=== PATIENT | male | born 1960 | race American Indian/Alaskan Native ===

== ENCOUNTER 2019-09-15 02:35 | Emergency (ER) | payer OTHER ==
--- NOTE | 2019-09-15 04:24 | XRay Report ---
LEFT SHOULDER 3 VIEWS 0320 INDICATION: left shoulder pain COMPARISON: None available. FINDINGS: No fractures or dislocations are seen. Only a trace glenohumeral degenerative change is not ed. Signer Name: Sebastian White MD Signed: 09/15/2019 4:19 AM Workstation Name: [id number]
[2019-09-15] MEDS ORDERED: HYDROcodone/ACETAMINOPHEN 5-325 MG TAB PO ONE (05:06)
[2019-09-15] MEDS ORDERED: TETANUS,DIPH,PERTUSS(ACELL) VACCINE 0.5 ML SYRINGE IM ONE (05:06)
--- NOTE | 2019-09-15 05:06 | Emergency Department Report ---
- General Chief Complaint: Wound/Laceration Stated Complaint: FACIAL INJURY Time Seen by Provider: 09/15/19 03:48 Source: patient Mode of arrival: Ambulatory Limitations: No Limitations - History of Present Illness Initial Comments: pt is a 59 y/o aam who fell out of bed striking the bridge of his nose on coffee table, now with 1 cm laceration across same. there is no deformity , bleed in controlled by direct pressure applied by patient, pt denies loc, was immediately ambulatory after incident, drove to ed , pt has secondary complaint of left shoulder pain, pt denies neck pain no headache, no epistaxis, no other injury. Onset/Timin -: hour(s) Location: face Place: home Patient Tetanus UTD: No Associated Symptoms: pain - Related Data Previous Rx's Medication Instructions Recorded Last Taken Type Acetaminophen/Codeine [Tylenol 1 tab PO Q6H PRN #12 tab 09/15/19 Unknown Rx /Codeine # 3 tab] Oxymetazoline 0.05% [Vicks Sinex] 2 spray NS BID #1 bottle 09/15/19 Unknown Rx Allergies Allergy/AdvReac Type Severity Reaction Status Date / Time No Known Allergies Allergy Unverified 09/15/19 02:55 ED Review of Systems ROS: Stated complaint: FACIAL INJURY Other details as noted in HPI Constitutional: denies: chills, fever Eyes: denies: eye pain, eye discharge, vision change ENT: denies: ear pain, throat pain Respiratory: denies: cough, shortness of breath, wheezing Cardiovascular: as per HPI Endocrine: no symptoms reported Gastrointestinal: denies: abdominal pain, nausea, diarrhea Genitourinary: denies: urgency, dysuria Musculoskeletal: denies: back pain, joint swelling, arthralgia Skin: other (nose laceration as above ). denies: rash, lesions Neurological: denies: headache, weakness, paresthesias Psychiatric: denies: anxiety, depression Hematological/Lymphatic: denies: easy bleeding, easy bruising ED Past Medical Hx - Past Medical History Previous Medical History?: No - Surgical History Past Surgical History?: No - Social History Smoking Status: Never Smoker Substance Use Type: None - Medications Home Medications: Home Medications Medication Instructions Recorded Confirmed Last Taken Type Acetaminophen/Codeine [Tylenol 1 tab PO Q6H PRN #12 tab 09/15/19 Unknown Rx /Codeine # 3 tab] Oxymetazoline 0.05% [Vicks Sinex] 2 spray NS BID #1 bottle 09/15/19 Unknown Rx ED Physical Exam - General Limitations: No Limitations General appearance: alert, in no apparent distress - Head Head exam: Present: normocephalic, normal inspection - Expanded Head Exam Expanded Head exam: Present: laceration (nose horizontal 1 cm superficial ). Absent: abrasion, contusion, hematoma, racoon eyes, tracy's sign, general tenderness, tenderness of temporal artery, CSF rhinorrhea, CSF otorrhea - Eye Eye exam: Present: normal appearance, PERRL, EOMI. Absent: nystagmus Pupils: Present: normal accommodation - ENT ENT exam: Present: normal orophraynx, mucous membranes moist, TM's normal bilaterally, normal external ear exam - Neck Neck exam: Present: normal inspection, full ROM. Absent: tenderness, meningismus, lymphadenopathy, thyromegaly - Expanded Neck Exam Expanded Neck exam: Absent: tenderness, midline deformity, anterior neck swelling, thyroid mass, carotid bruit, tracheal deviation - Respiratory Respiratory exam: Present: normal lung sounds bilaterally. Absent: respiratory distress, wheezes, stridor, chest wall tenderness - Cardiovascular Cardiovascular Exam: Present: regular rate, normal rhythm, normal heart sounds. Absent: systolic murmur, diastolic murmur, rubs, gallop - GI/Abdominal GI/Abdominal exam: Present: soft, normal bowel sounds. Absent: distended, tenderness, bruit, hernia - Rectal Rectal exam: Present: deferred - Extremities Exam Extremities exam: Present: normal inspection, full ROM, tenderness (left anteri or lateral shoulder ), normal capillary refill - Expanded Upper Extremity Exam Left Shoulder Exam: Present: full ROM, tenderness (left anterior later shoulder , mild ac joint tenderness no swelling no deformity no crepitus), tenderness over AC joint (mild ). Absent: swelling, abrasion, laceration, ecchymosis, deformity, crepidus, dislocation, erythema Upper Arm exam: Present: normal inspection, full ROM. Absent: tenderness Elbow exam: Present: full ROM. Absent: tenderness, swelling Forearm Wrist exam: Present: full ROM. Absent: tenderness, swelling Hand Wrist exam: Present: normal inspection, full ROM. Absent: tenderness Neuro motor exam: Present: wrist extension intact, thumb opposition intact, thumb IP flexion intact, thumb adduction intact, fingers 2-5 abduction intact Neurosensory exam: Present: 2-point discrimination, radial nerve intact Vascular: Present: normal capillary refill. Absent: vascular compromise, pulse deficit radial art - Back Exam Back exam: Present: normal inspection, full ROM, muscle spasm. Absent: tenderness, CVA tenderness (R), CVA tenderness (L), paraspinal tenderness, vertebral tenderness, rash noted - Neurological Exam Neurological exam: Present: alert, oriented X3, CN II-XII intact, normal gait, reflexes normal. Absent: motor sensory deficit - Psychiatric Psychiatric exam: Present: normal affect, normal mood - Skin Skin exam: Present: warm, dry, intact, normal color, other (nose laceration ). Absent: rash - Laceration /Wound Repair Face Wound Location: face (nose laceration 1 cm ) Wound Length (cm): 1 Wound's Depth, Shape: superficial Wound Explored: clean Irrigated w/ Saline (ccs): 20 Betadine Prep?: Yes Wound Debrided: none required Wound Repaired With: Dermabond Progress: nose laceration , no bleeding no deformity , site cleaned with betadine solution, irrigated wtih 20 cc sterile saline, wound explored no foreign body, wound closed with dermabond adhesive skin, and steristrip, all bleeding controlled pt tolerated procedure with minimal distress. given wound care instructions ED Medical Decision Making - Radiology Data Radiology results: report reviewed, image reviewed Ordering Physician: ANKIT LLANES NP Date of Service: 09/15/19 Procedure(s): XR shoulder 2+V LT Accession Number(s): [id number] cc: ANKIT LLANES NP Fluoro Time In Minutes: LEFT SHOULDER 3 VIEWS 0320 INDICATION: left shoulder pain COMPARISON: None available. FINDINGS: No fractures or dislocations are seen. Only a trace glenohumeral degenerative change is noted. Signer Name: Sebastian White MD Signed: 09/15/2019 4:19 AM Workstation Name: [id number] Transcribed By: HIRA Dictated By: Sebastian White MD Electronically Authenticated By: Sebastian White MD Signed Date/Time: 09/15/19418 DD/ 8 TD/TT: - Medical Decision Making nose laceration repaired see procedure note, all bleeding is controlled, pt given wound care instructions. left shoulder strain- xray shoulder : no fracure no dislocation , distal pulses intact , dust operator equal no swelling no deformity, no crepitus or ecchymosis, pt and family member given head injury precautions , verbalized agreement and understanding of same, pt dc'd to home in stable condition, rx for tylenol #3, prn pain, afrin nasal spray prn, follow up with ortho in if shoulder pain continues, follow up with pcp in 2 days for wound . Critical care attestation.: If time is entered above; I have spent that time in minutes in the direct care of this critically ill patient, excluding procedure time. ED Disposition Clinical Impression: Fall Qualifiers: Encounter type: initial encounter Qualified Code(s): W19.XXXA - Unspecified fall, initial encounter Minor head injury Qualifiers: Encounter type: initial encounter Qualified Code(s): S09.90XA - Unspecified injury of head, initial encounter Laceration of nose Qualifiers: Encounter type: initial encounter Qualified Code(s): S01.21XA - Laceration without foreign body of nose, initial encounter Left shoulder strain Qualifiers: Encounter type: initial encounter Qualified Code(s): S46.912A - Strain of unspecified muscle, fascia and tendon at shoulder and upper arm level, left arm, initial encounter Disposition: DC-01 TO HOME OR SELFCARE Is pt being admited?: No Does the pt Need Aspirin: No Condition: Stable Instructions: Fall Prevention (ED), Minor Head Injury (ED), Shoulder Sprain (ED), Skin Adhesive Care (ED), Laceration (ED) Prescriptions: Acetaminophen/Codeine [Tylenol /Codeine # 3 tab] 1 tab PO Q6H PRN #12 tab PRN Reason: pain Oxymetazoline 0.05% [Vicks Sinex] 2 spray NS BID #1 bottle Referrals: TESSIE MORENO MD [Staff Physician] - 3-5 Days Forms: Work/School Release Form(ED)
[2019-09-15 06:36] VITALS: BP 149/87
== END 2019-09-15 06:08 | disposition home or self-care (01) ==
LOC: ED 02:35
DX: S01.21XA Laceration without foreign body of nose, initial encounter (principal); S46.912A Strain of unspecified muscle, fascia and tendon at shoulder and upper arm level, left arm, initial encounter; S09.90XA Unspecified injury of head, initial encounter; W06.XXXA Fall from bed, initial encounter; Y93.89 Activity, other specified; Y92.009 Unspecified place in unspecified non-institutional (private) residence as the place of occurrence of the external cause; Y99.8 Other external cause status
CPT/HCPCS: 90471; 90715

== ENCOUNTER 2020-05-27 17:26 | Emergency (ER) | payer SELFPAY ==
[2020-05-27 17:53] VITALS: BP 136/82
--- NOTE | 2020-05-27 20:27 | Event Note ---
ED Screening Note Date of service: 05/27/20 Time: 20:22 ED Screening Note: This is a 60-year-old male presents with laceration to the right lower leg that happened to him taking out the trash with a glass cut 6 cm lac to right lateral leg This initial assessment/diagnostic orders/clinical plan/treatment(s) is/are subject to change based on patients health status, clinical progression and re- assessment by fellow clinical providers in the ED. Further treatment and workup at subsequent clinical providers discretion. Patient/guardian urged not to elope from the ED as their condition may be serious if not clinically assessed and managed. Initial orders in lac repair
[2020-05-27] MEDS ORDERED: IBUPROFEN 800 MG TAB PO ONE (21:16)
[2020-05-27] MEDS ORDERED: LIDOCAINE-MPF (1%) 10 MG/1 ML VIAL 5 ML INFILTRATI ONE (21:16)
--- NOTE | 2020-05-27 23:16 | Emergency Department Report ---
- General Chief Complaint: Wound/Laceration Stated Complaint: CUT ON RIGHT LEG Source: patient Mode of arrival: Ambulatory Limitations: No Limitations - History of Present Illness Initial Comments: Patient is a 60-year-old -[place] male with no past medical history who presents to the ED with complaint of acute onset painful bleeding right lower leg laceration after a piece of sharp object scraped his right lower leg when cutting a piece of trash out of the house about 4 hours ago. Patient states that he is up-to-date with his tetanus vaccination. Patient denies fall, traumatic injury, numbness and tingling or weakness of right leg, dizziness, chest pain, shortness of breath, headache, fever, chills or low back pain. -: Sudden, hour(s) (4) Location: other (right lower leg) Extremity Location: Right: Lower Leg (lateral right lower leg) Place: home Patient Tetanus UTD: Yes Context: accidental, sharp object use Associated Symptoms: pain. denies: loss of feeling/numbness, suspect foreign body present, unable to move injured part, weakness followed by dizziness, nausea/vomiting, fever - Related Data Previous Rx's Medication Instructions Recorded Last Taken Type Acetaminophen/Codeine [Tylenol 1 tab PO Q6H PRN #12 tab 09/15/19 Unknown Rx /Codeine # 3 tab] Oxymetazoline 0.05% [Vicks Sinex] 2 spray NS BID #1 bottle 09/15/19 Unknown Rx Ibuprofen [Motrin] 800 mg PO Q8HR PRN #24 tablet 05/27/20 Unknown Rx Sulfamethoxazole/Trimethoprim 1 each PO BID #20 tablet 05/27/20 Unknown Rx [Bactrim DS TAB] Allergies Allergy/AdvReac Type Severity Reaction Status Date / Time No Known Allergies Allergy Verified 05/27/20 17:52 ED Review of Systems ROS: Stated complaint: CUT ON RIGHT LEG Other details as noted in HPI Constitutional: denies: chills, fever Eyes: denies: eye pain, eye discharge, vision change ENT: denies: ear pain, throat pain Respiratory: denies: cough, shortness of breath, wheezing Cardiovascular: denies: chest pain, palpitations Endocrine: no symptoms reported Gastrointestinal: denies: abdominal pain, nausea, diarrhea Genitourinary: denies: urgency, dysuria Musculoskeletal: arthralgia (right lower leg pain due to a bleeding laceration). denies: back pain, joint swelling Skin: other (Bleeding laceration wound on right lower leg). denies: rash, lesions Neurological: denies: headache, weakness, paresthesias Psychiatric: denies: anxiety, depression Hematological/Lymphatic: denies: easy bleeding, easy bruising ED Past Medical Hx - Past Medical History Additional medical history: IRREGULAR HR - Surgical History Past Surgical History?: No - Social History Smoking Status: Never Smoker Substance Use Type: None - Medications Home Medications: Home Medications Medication Instructions Recorded Confirmed Last Taken Type Acetaminophen/Codeine [Tylenol 1 tab PO Q6H PRN #12 tab 09/15/19 Unknown Rx /Codeine # 3 tab] Oxymetazoline 0.05% [Vicks Sinex] 2 spray NS BID #1 bottle 09/15/19 Unknown Rx Ibuprofen [Motrin] 800 mg PO Q8HR PRN #24 tablet 05/27/20 Unknown Rx Sulfamethoxazole/Trimethoprim 1 each PO BID #20 tablet 05/27/20 Unknown Rx [Bactrim DS TAB] ED Physical Exam - General Limitations: No Limitations General appearance: alert, in no apparent distress - Head Head exam: Present: atraumatic, normocephalic, normal inspection - Eye Eye exam: Present: normal appearance Pupils: Present: normal accommodation - ENT ENT exam: Present: normal exam, normal orophraynx, mucous membranes moist, TM's normal bilaterally, normal external ear exam - Neck Neck exam: Present: normal inspection, full ROM - Respiratory Respiratory exam: Present: normal lung sounds bilaterally. Absent: respiratory distress, wheezes, rhonchi, stridor, chest wall tenderness, decreased breath sounds, prolonged expiratory - Cardiovascular Cardiovascular Exam: Present: normal rhythm, bradycardia, normal heart sounds. Absent: systolic murmur, diastolic murmur, rubs, gallop - GI/Abdominal GI/Abdominal exam: Present: soft, normal bowel sounds. Absent: tenderness, guarding, hyperactive bowel sounds, hypoactive bowel sounds - Extremities Exam Extremities exam: Present: normal inspection, full ROM, tenderness (Palpable right lower leg tenderness due to a bleeding 8 cm laceration on lateral right lower leg), normal capillary refill, calf tenderness (Right calf tenderness due to bleeding 8 cm laceration) - Back Exam Back exam: Present: normal inspection, full ROM. Absent: tenderness, CVA tenderness (R), CVA tenderness (L), muscle spasm, paraspinal tenderness - Neurological Exam Neurological exam: Present: alert, oriented X3, CN II-XII intact, normal gait, reflexes normal - Psychiatric Psychiatric exam: Present: normal affect, normal mood - Skin Skin exam: Present: warm, dry, intact, normal color, other (Bleeding 8 cm laceration on lateral right lower leg). Absent: rash ED Course Vital Signs 05/27/20 17:50 Temperature 98.1 F Pulse Rate 52 L Respiratory 18 Rate Blood Pressure 136/82 O2 Sat by Pulse 97 Oximetry - Laceration /Wound Repair Right Lateral Calf Wound Location: lower extremity (Lateral right lower leg on the calf) Wound Length (cm): 8 Wound's Depth, Shape: superficial, linear Wound Explored: contaminated Irrigated w/ Saline (ccs): 100 Betadine Prep?: Yes Anesthesia: 1% Lidocaine Volume Anesthetic (ccs): 10 Wound Debrided: extensive Wound Repaired With: sutures Suture Size/Type: 3:0, proline Number of Sutures: 17 Layer Closure?: No Sterile Dressing Applied?: Yes Progress: Patient tolerated the procedure well. The wound was dressed and the patient was discharged home on prophylactic antibiotics and pain medications. Patient was advised return to the ED immediately if symptoms get worse, otherwise return to the ED or to his primary care physician in 12 to 14 days for suture removal. Critical care attestation.: If time is entered above; I have spent that time in minutes in the direct care of this critically ill patient, excluding procedure time. ED Disposition Clinical Impression: Laceration of right lower leg without complication Qualifiers: Encounter type: initial encounter Qualified Code(s): S81.811A - Laceration without foreign body, right lower leg, initial encounter Disposition: - TO HOME OR SELFCARE Is pt being admited?: No Does the pt Need Aspirin: No Condition: Stable Instructions: Laceration (ED), Suture Care (ED) Additional Instructions: Take medication with food, drink plenty of fluids and follow-up with your primary care physician in 7 to 10 days for reevaluation. Return to the ED immediately if symptoms get worse. Otherwise return to the ED or to your primary care physician in 12 to 14 days for suture removal. Prescriptions: Sulfamethoxazole/Trimethoprim [Bactrim DS TAB] 1 each PO BID #20 tablet Ibuprofen [Motrin] 800 mg PO Q8HR PRN #24 tablet PRN Reason: Pain , Severe (7-10) Referrals: [facility] [Provider Group] - 3-5 Days Time of Disposition: 23:18 Print Language: VENEZUELAN
[2020-05-27] MEDS ORDERED: SULFAMETHOXAZOLE/TRIMETHOPRIM 800/160MG DS TAB PO ONE (23:19)
== END 2020-05-27 23:25 | disposition home or self-care (01) ==
LOC: ED 17:26
DX: S81.811A Laceration without foreign body, right lower leg, initial encounter (principal); W45.8XXA Other foreign body or object entering through skin, initial encounter; Y93.89 Activity, other specified; Y92.89 Other specified places as the place of occurrence of the external cause; Y99.8 Other external cause status
CPT/HCPCS: 99282

== ENCOUNTER 2020-12-14 11:12 | Emergency (ER) | payer SELFPAY ==
[2020-12-14 11:47] VITALS: BP 113/69
--- NOTE | 2020-12-14 12:02 | Emergency Department Report ---
- General Chief Complaint: Upper Respiratory Infection Stated Complaint: CHEST/ARAMIS/POSITIVE COVID Time Seen by Provider: 12/14/20 11:52 Source: patient Mode of arrival: Ambulatory Limitations: No Limitations - History of Present Illness Initial Comments: Patient is a 60-year-old male presents emergency room with complaints of stating he is COVID-19 positive on 12/06/2020. He has associated symptoms of loss of sense of smell and taste, headache, intermittent fevers, generalized body aches, chills. He states that the Tylenol has been helping with his symptoms. He states he also has a cough with mucus production. He states over the last few days he has become more short of breath that is worse with coughing. He denies any sick contacts or recent travel. No nausea, vomiting, diarrhea, chest pain, abdominal pain. No past medical history. No allergies medications. He is a former smoker and quit 7 years ago. - Related Data Previous Rx's Medication Instructions Recorded Last Taken Type Acetaminophen/Codeine [Tylenol 1 tab PO Q6H PRN #12 tab 09/15/19 Unknown Rx /Codeine # 3 tab] Oxymetazoline 0.05% [Vicks Sinex] 2 spray NS BID #1 bottle 09/15/19 Unknown Rx Ibuprofen [Motrin] 800 mg PO Q8HR PRN #24 tablet 05/27/20 Unknown Rx Sulfamethoxazole/Trimethoprim 1 each PO BID #20 tablet 05/27/20 Unknown Rx [Bactrim DS TAB] Albuterol Sulfate [Proventil Hfa] 6.7 gm IH TID PRN #1 hfa.aer.ad 12/14/20 Unknown Rx Azithromycin [Zithromax TAB] 250 mg PO QDAY 5 Days #6 tablet 12/14/20 Unknown Rx Dexamethasone 6 mg PO DAILY 10 Days #10 tablet 12/14/20 Unknown Rx guaiFENesin ER [Mucinex ER] 600 mg PO BID #14 tablet.er 12/14/20 Unknown Rx Allergies Allergy/AdvReac Type Severity Reaction Status Date / Time No Known Allergies Allergy Verified 06/11/20 08:32 ED Review of Systems ROS: Stated complaint: CHEST/ARAMIS/POSITIVE COVID Other details as noted in HPI Comment: All other systems reviewed and negative ED Past Medical Hx - Past Medical History Previous Medical History?: No Additional medical history: IRREGULAR HR - Surgical History Past Surgical History?: No - Social History Smoking Status: Never Smoker Substance Use Type: None - Medications Home Medications: Home Medications Medication Instructions Recorded Confirmed Last Taken Type Acetaminophen/Codeine [Tylenol 1 tab PO Q6H PRN #12 tab 09/15/19 Unknown Rx /Codeine # 3 tab] Oxymetazoline 0.05% [Vicks Sinex] 2 spray NS BID #1 bottle 09/15/19 Unknown Rx Ibuprofen [Motrin] 800 mg PO Q8HR PRN #24 tablet 05/27/20 Unknown Rx Sulfamethoxazole/Trimethoprim 1 each PO BID #20 tablet 05/27/20 Unknown Rx [Bactrim DS TAB] Albuterol Sulfate [Proventil Hfa] 6.7 gm IH TID PRN #1 hfa.aer.ad 12/14/20 Unknown Rx Azithromycin [Zithromax TAB] 250 mg PO QDAY 5 Days #6 tablet 12/14/20 Unknown Rx Dexamethasone 6 mg PO DAILY 10 Days #10 tablet 12/14/20 Unknown Rx guaiFENesin ER [Mucinex ER] 600 mg PO BID #14 tablet.er 12/14/20 Unknown Rx ED Physical Exam - General Limitations: No Limitations General appearance: alert, in no apparent distress - Head Head exam: Present: atraumatic, normocephalic - Eye Eye exam: Present: normal appearance - ENT ENT exam: Present: mucous membranes moist - Respiratory Respiratory exam: Present: normal lung sounds bilaterally. Absent: respiratory distress, wheezes, rales, rhonchi, stridor, chest wall tenderness, accessory muscle use, decreased breath sounds, prolonged expiratory - Cardiovascular Cardiovascular Exam: Present: regular rate, normal rhythm, normal heart sounds. Absent: systolic murmur, diastolic murmur, rubs, gallop - Neurological Exam Neurological exam: Present: alert, oriented X3 - Psychiatric Psychiatric exam: Present: normal affect, normal mood - Skin Skin exam: Present: warm, dry, intact ED Course Vital Signs 12/14/20 11:47 Temperature 97.9 F Pulse Rate 87 Respiratory 18 Rate Blood Pressure 113/69 [Right] O2 Sat by Pulse 97 Oximetry ED Medical Decision Making - Radiology Data Radiology results: report reviewed Ordering Physician: MAY RICHEY Date of Service: 12/14/20 Procedure(s): XR chest routine 2V Accession Number(s): [id number] cc: MAY RICHEY Fluoro Time In Minutes: CHEST 2 VIEWS INDICATION: cough, SOB. COMPARISON: None FINDINGS: SUPPORT DEVICES: None. HEART: Within normal limits. LUNGS/PLEURA: Vague diffuse interstitial prominence is noted without overt edema. There is no consolidation or pleural effusion. No pneumothorax. ADDITIONAL FINDINGS: None. IMPRESSION: 1. Diffuse interstitial prominence throughout the lungs. One consideration would be an atypical etiology such as viral pneumonia. Recommend appropriate testing. Signer Name: Brennan Sanderson MD Signed: 12/14/2020 12:31 PM Workstation Name: [id number] Transcribed By: HIEU Dictated By: Brennan Sanderson MD Electronically Authenticated By: Brennan Sanderson MD Signed Date/Time: 12/14/20 123 DD/ 1230 TD/TT: - Medical Decision Making Patient is a 60-year-old male presents emergency room with complaints of stating he is COVID-19 positive on 12/06/2020. He has associated symptoms of loss of sense of smell and taste, headache, intermittent fevers, generalized body aches, chills. He states that the Tylenol has been helping with his symptoms. He states he also has a cough with mucus production. He states over the last few days he has become more short of breath that is worse with coughing. He denies any sick contacts or recent travel. No nausea, vomiting, diarrhea, chest pain, abdominal pain. No past medical history. No allergies medications. He is a former smoker and quit 7 years ago. vitals are normal. no abnormality on physical exam as documented in chart. CXR: 1. Diffuse interstitial prominence throughout the lungs. One consideration would be an atypical etiology such as viral pneumonia. Recommend appropriate testing. xr findings likely consistent with COVID 19 PNA. pt does not meet hospital criteria for COVID 19 admission. discussed all results with pt and answered questions. pt given prescription for azithromycin, dexamethasone, albuterol inhaler, and mucinex. advised pt Please take medication as prescribed. Please increase your fluid intake over the next several days. May take Tylenol as needed for fever or body aches. Follow-up with a primary care doctor for reexamination. Return to emergency room immediately for any new or worsening symptoms including but not limited to difficulty breathing, shortness of breath, severe chest pain, unable to tolerate by mouth intake, etc. Please self quarantine for 2 weeks from the onset of your symptoms. Please do not go out in public. If you are around others at home please wear a mask. If you need to cough or sneeze please do so in a napkin and immediately throw it away and immediately wash your hands. Wash your hands frequently. Wipe everything down. Critical care attestation.: If time is entered above; I have spent that time in minutes in the direct care of this critically ill patient, excluding procedure time. ED Disposition Clinical Impression: COVID-19 Pneumonia Qualifiers: Pneumonia type: due to unspecified organism Laterality: bilateral Lung location: lower lobe of lung Qualified Code(s): J18.9 - Pneumonia, unspecified organism Disposition: TO HOME OR SELFCARE Is pt being admited?: No Does the pt Need Aspirin: No Condition: Stable Instructions: COVID-19, COVID-19: How to Protect Yourself and Others - CDC, Community-Acquired Pneumonia, Adult, Bacterial Pneumonia (ED) Additional Instructions: Please take medication as prescribed. Please increase your fluid intake over the next several days. May take Tylenol as needed for fever or body aches. Follow-up with a primary care doctor for reexamination. Return to emergency room immediately for any new or worsening symptoms including but not limited to difficulty breathing, shortness of breath, severe chest pain, unable to tolerate by mouth intake, etc. Please self quarantine for 2 weeks from the onset of your symptoms. Please do not go out in public. If you are around others at home please wear a mask. If you need to cough or sneeze please do so in a napkin and immediately throw it away and immediately wash your hands. Wash your hands frequently. Wipe everything down. Prescriptions: Dexamethasone 6 mg PO DAILY 10 Days #10 tablet guaiFENesin ER [Mucinex ER] 600 mg PO BID #14 tablet.er Albuterol Sulfate [Proventil Hfa] 6.7 gm IH TID PRN #1 hfa.aer.ad PRN Reason: Shortness Of Breath Azithromycin [Zithromax TAB] 250 mg PO QDAY 5 Days #6 tablet Referrals: PRIMARY CARE, [Primary Care Provider] - 2-3 Days Time of Disposition: 12:44 Print Language: DANISH
--- NOTE | 2020-12-14 12:36 | XRay Report ---
CHEST 2 VIEWS INDICATION: cough, SOB. COMPARISON: None FINDINGS: SUPPORT DEVICES: None. HEART: Within normal limits. LUNGS/PLEURA: Vague diffuse interstitial prominence is noted without overt edema. There is no consoli dation or pleural effusion. No pneumothorax. ADDITIONAL FINDINGS: None. IMPRESSION: 1. Diffuse interstitial prominence throughout the lungs. One consideration would be an atypical etiol ogy such as viral pneumonia. Recommend appropriate testing. Signer Name: Brennan Sanderson MD Signed: 12/14/2020 12:31 PM Workstation Name: [id number]
== END 2020-12-14 12:53 | disposition home or self-care (01) ==
LOC: ED 11:12
DX: U07.1 COVID-19 (principal); J18.9 Pneumonia, unspecified organism; Z79.899 Other long term (current) drug therapy
CPT/HCPCS: 71046; 99283